=== PATIENT | female | born 1955 | race Caucasian/White ===

== ENCOUNTER 2020-06-24 19:51 | Emergency (ER) | payer OTHER ==
[2020-06-24] MEDS ORDERED: ACETAMINOPHEN 500 MG TABLET (FP) PO ONE (20:00)
[2020-06-24] MEDS ORDERED: ALPRAZolam 1 MG TABLET PO PRN (20:00)
[2020-06-24] MEDS ORDERED: ALPRAZolam 0.25 MG TABLET ONE (20:01)
[2020-06-24] MEDS ORDERED: ACETAMINOPHEN 500 MG TABLET (FP) ONE (20:01)
[2020-06-24 20:11] VITALS: BP 130/68; PULSE 69; TEMP 98.1; BMI 26.2
--- NOTE | 2020-06-24 20:17 | PDOC ---
History of Present Illness - General Chief Complaint: Headache Stated Complaint: INSOMNIA/HEADACHE Time Seen by Provider: 06/24/20 19:55 History Source: Patient Exam Limitations: No Limitations - History of Present Illness Initial Comments: 06/24/20 20:36 This is a 64-year-old female with history of diabetes otherwise healthy who comes in complaining of a headache secondary to anxiety, stress insomnia. Patient did not take anything for the headache or her anxiety or stress. Patient said she was unable to sleep last night and tried sleeping today and was unable to sleep and now has a headache. Patient denies any fevers, chills, neck stiffness, neurological complaints, nausea, vomiting or diarrhea. Allergies: as per nursing notes Past Medical History: none Social history: Lives with family. No smoking. No alcohol. No illicit drugs. Surgical history: None General: No fevers or chills, no weakness, no weight loss HEENT: No change in vision. No sore throat,. No ear pain CardioVascular: no chest discomfort. No shortness of breath Respiratory:No cough, or wheezing. Gastrointestinal: no nausea, vomiting, diarrhea or constipation, No rectal bleeding Genitourinary: No dysuria, hematuria, or frequency Musculoskeletal: No joint or muscle pain or swelling Neurologic: + headache, vertigo, dizziness or loss of consciousness Psychiatric: no depression, stress and anxiety Skin: No rashes or easy bruising Endocrine: no increased thirst or abnormal weight change Allergic: no skin or latex allergy All other systems reviewed and normal GENERAL: The patient is awake, alert, and fully oriented, in no acute distress. HEENT:Head is normal with no signs of trauma. Eyes: Pupils equal, round and reactive to light, Ears, and Throat are normal. Neck is supple. No Lymphadenopathy. EXTREMITIES:atraumatic, Normal range of motion, no edema. NEUROLOGICAL: Normal speech, normal gait. PSYCH: Normal mood, normal affect. SKIN: Warm, Dry, normal turgor, no rashes or lesions noted. Assessment and plan: This is a 64-year-old female who comes in complaining of a headache secondary to stress anxiety and insomnia. Patient was given Xanax and Tylenol with complete resolution of her headache. Patient feels much better and was discharged with a prescription of 7 tablets of Xanax and told to follow-up with her primary care doctor and also get a therapist to help her deal with her stress and anxiety. Past History - Medical History Allergies/Adverse Reactions: Allergies Allergy/AdvReac Type Severity Reaction Status Date / Time No Known Allergies Allergy Unverified 06/24/20 19:52 Home Medications: Ambulatory Orders Alprazolam [Xanax] 0.5 mg PO HS PRN #7 tablet MDD 1 06/24/20 Fenofibrate Nanocrystallized [Fenofibrate] 48 mg PO DAILY 06/24/20 Metformin HCl [Glucophage] 500 mg PO DAILY 06/24/20 Discharge - Discharge Information Problems reviewed: Yes Clinical Impression/Diagnosis: Anxiety in acute stress reaction Condition: Stable Disposition: HOME - Admission No - Additional Discharge Information Prescriptions: Alprazolam [Xanax] 0.5 mg PO HS PRN #7 tablet MDD 1 PRN Reason: Anxiety - Follow up/Referral - Patient Discharge Instructions Additional Instructions: Take 1 Xanax before bed to help you sleep secondary to stress, anxiety and insomnia. It is important that you follow-up with your primary care doctor and also see a therapist to help you better deal with the stress in your life. Return to the emergency department immediately with ANY new, persistent or worsening symptoms. Continue any medications as previously prescribed by your physician. You should follow up with your primary doctor as soon as possible regarding today's emergency department visit. . Please make sure your doctor reviews the results of your emergency evaluation. Thank you for coming to the Emergency Department today for your care. It was a pleasure to see you today. Please note that your evaluation is INCOMPLETE until you follow-up with your doctor. - Post Discharge Activity
== END 2020-06-24 20:27 | disposition home or self-care (01) ==
LOC: FER 19:51
DX: F43.0 Acute stress reaction (principal)
CPT/HCPCS: 82962; 99283-25